=== PATIENT | female | born 1960 | race African-American/Black ===

== ENCOUNTER 2019-08-16 19:51 | Inpatient (IN) | payer OTHER ==
[2019-08-16 21:32] VITALS: BMI 26.4
--- NOTE | 2019-08-16 22:35 | HP ---
CIWA Score Nausea/Vomitin-No Nausea/No Vomiting Muscle Tremors: 4-Moderate,w/Arms Extend Anxiety: 3 Agitation: 4-Moderately Restless Paroxysmal Sweats: 3 (Increased facial moisture) Orientation: 0-Oriented Tacttile Disturbances: 0-None Auditory Disturbances: 0-None Visual Disturbances: 0-None Headache: 0-None Present CIWA-Ar Total Score: 14 - Admission Criteria OASAS Guidelines: Admission for Medically Managed Detox: Requires at least one of the followin. CIWA greater than 12 2. Seizures within the past 24 hours 3. Delirium tremens within the past 24 hours 4. Hallucinations within the past 24 hours 5. Acute intervention needed for co occurring medical disorder 6. Acute intervention needed for co occurring psychiatric disorder 7. Severe withdrawal that cannot be handled at a lower level of care (continued vomiting, continued diarrhea, abnormal vital signs) requiring intravenous medication and/or fluids 8. Patient presents the following: CIWA greater than 12 Admission Criteria Met: Admission criteria met Admission ROS S - HPI Chief Complaint: I need help. I'm drinking too much. Allergies/Adverse Reactions: Allergies Allergy/AdvReac Type Severity Reaction Status Date / Time No Known Allergies Allergy Verified 08/16/19 21:19 History of Present Illness: 59 yo presents w/ alcohol withdrawal seeking detox. Longest sobriety 6 years. Utox: +THC/MILLICENT/BZO ANTHONY: 0.0 Alcohol use began at age 13. Currently drinks 1 liter/day. x 2-3 months. Crack/cocaine use began at age 19. Currently using 1 gm/day since started at age 19. Marijuana use began at age 19. States rarely smokes. Nicotine use began at age 11. Currently smokes 6 cig/day. Denies seizures, blackouts, overdoses. PMHx: HTN, DM; COPD; Prescribed Plavix - non- compliant. Does not know why on Plavix. (Denies stents, strokes, CVA) MHHx: Depression. Not on MH meds. Does not see a MH provider. Denies thoughts of harming self or others. SHx: Domiciled. Unemployed ([employer]). Denies legal issues Patient Name: Nancy Ely Date: 1960 Address: [address] [place] [address] Sex: Female Rx Written Rx Dispensed Drug Quantity Days Supply Prescriber Name 10/22/2018 10/28/2018 endocet 10-325 mg tablet 28 14 Jarad Bustillo MD 10/08/2018 10/14/2018 endocet 10-325 mg tablet 42 14 Denis Gates 09/10/2018 09/15/2018 endocet 10-325 mg tablet 70 30 Jarad Bustillo MD Search Terms: Nancy Ely, 1960 Search Date: 08/16/2019 10:26:59 PM States Searched: [place], [place], [place], [place], [place], [place], [place], [place] The Drug Utilization Report below displays the controlled substance prescriptions, if any, that were dispensed in the indicated state(s). The information displayed on this report is compiled from requests submitted to other states' PMPs, and accurately reflects the information as returned by them. Blank espino indicate data not provided by other state. This report was requested by: Tiffanie Pascal | Reference #: [id number] Exam Limitations: No Limitations - Ebola screening Have you traveled outside of the country in the last 21 days: No (N) Have you had contact with anyone from an Ebola affected area: No Have you been sick,other than usual withdrawal symptoms: No Do you have a fever: No - Review of Systems Constitutional: Diaphoresis EENT: reports: Blurred Vision, Dental Problems (No teeth. Chews and swallows ok. ) Respiratory: reports: Cough (x 2 days white phlegm.) Cardiac: reports: No Symptoms Reported GI: reports: Diarrhea (watery, brownish stool x 2 times today) : reports: No Symptoms Reported Musculoskeletal: reports: Back Pain (Chronic sharp back pain."05/03". Scolioisis. Stading too long increases pain. Improves w/ resting.) Integumentary: reports: No Symptoms Reported Neuro: reports: Numbness (Both feet), Tremors Endocrine: reports: Increased Urine Hematology: reports: Other (Prescribed Plavix - non- compliant.) Psychiatric: reports: Orientated x3, Agitated, Anxious, Depressed (Denies thoughts of harming self or others. x), other Patient History - PPD History Previous Implant?: Yes Documented Results: Negative w/o proof Implanted On Prior [facility] Admission?: No PPD to be Administered?: Yes - Reproductive History Patient : No - Smoking Cessation Smoking history: Current every day smoker Have you smoked in the past 12 months: Yes Aproximately how many cigarettes per day: 10 Hx Chewing Tobacco Use: No Initiated information on smoking cessation: Yes 'Breaking Loose' booklet given: 08/16/19 - Substance & Tx. History Hx Alcohol Use: Yes Hx Substance Use: Yes Substance Use Type: Alcohol, Cocaine Hx Substance Use Treatment: Yes (detox, rehab) - Substances abused Alcohol Substance route: Oral Frequency: Daily Amount used: 1 liter of vodka Age of first use: 13 Date of last use: 08/16/19 Crack Substance route: Smoking Frequency: Daily Amount used: 1gram Age of first use: 19 Date of last use: 08/16/19 Admission Physical Exam BHS - Vital Signs Vital Signs: Vital Signs - 24 hr 08/16/19 21:28 Temperature 97.5 F L Pulse Rate 95 H Respiratory 16 Rate Blood Pressure 135/95 - Physical General Appearance: Yes: Nourished, Mild Distress, Tremorous, Sweating ( Increased facial moisture) HEENTM: Yes: EOMI, Hearing grossly Normal, Normocephalic, Normal Voice, CORINNE, Pharynx Normal Respiratory: Yes: Lungs Clear (Pulse ox = 98%), Normal Breath Sounds, No Respiratory Distress Neck: Yes: No masses,lesions,Nodules, Supple Breast: Yes: Breast Exam Deferred Cardiology: Yes: Regular Rhythm, Regular Rate, S1, S2 Abdominal: Yes: Non Tender, Soft, Increased Bowel Sounds, Protuberent ( Increased abdominal adiposisty) Genitourinary: Yes: Within Normal Limits Back: Yes: Normal Inspection Musculoskeletal: Yes: full range of Motion, Gait Steady Extremities: Yes: Normal Capillary Refill, Tremors (gross tremors w/ hands extended) Neurological: Yes: injection molding machine setter II-XII NML intact, Fully Oriented, Alert, Motor Strength 5/5, Normal Response (Irrtable and short tempered w/responses.) Integumentary: Yes: Normal Color, Warm, Diaphoresis (Increased facial moisture) Lymphatic: Yes: Within Normal Limits - Diagnostic (1) Alcohol dependence with uncomplicated withdrawal Current Visit: Yes Status: Acute (2) Cocaine dependence, uncomplicated Current Visit: Yes Status: Chronic (3) Nicotine dependence, uncomplicated Current Visit: Yes Status: Chronic Qualifiers: Nicotine product type: cigarettes Qualified Code(s): F17.210 - Nicotine dependence, cigarettes, uncomplicated (4) Marijuana smoker, episodic Current Visit: Yes Status: Chronic (5) Diabetes mellitus Current Visit: Yes Status: Chronic Qualifiers: Diabetes mellitus type: type 2 Diabetes mellitus assisted insulin use: without assisted use Diabetes mellitus complication status: without complication Qualified Code(s): E11.9 - Type 2 diabetes mellitus without complications (6) Essential (primary) hypertension Current Visit: Yes Status: Chronic (7) History of COPD Current Visit: No Status: Chronic Cleared for Admission S - Detox or Rehab [facility] Level of Care: Medically Managed Detox Regimen/Protocol: Librium Claeared for Rehab Admission: No Breathalyzer - Breathalyzer Breathalyzer: 0 Urine Drug Screen - Test Device Lot number: [id number] Expiration date: 04/23/21 - Control Is test valid?: Yes - Results Drug screen NEGATIVE: No Urine drug screen results: THC-Marijuana, MILLICENT-Cocaine, BZO-Benzodiazepines Inpatient Rehab Admission - Rehab Decision to Admit Inpatient rehab admission?: No
[2019-08-16] MEDS ORDERED: BISMUTH SUBSALICYLATE 524 MG/30 ML UD PO PRN (23:03)
[2019-08-16] MEDS ORDERED: NICOTINE POLACRILEX 2 MG GUM BUC PRN (23:03)
[2019-08-16] MEDS ORDERED: MELATONIN 5 MG TABLETS PO PRN (23:03)
[2019-08-16] MEDS ORDERED: MAGNESIUM CITRATE 300 ML BOTTLE PO PRN (23:03)
[2019-08-16] MEDS ORDERED: MAG HYDROX/AL HYDROX/SIMETH 30 ML UNIT-DOSE CUP PO PRN (23:03)
[2019-08-16] MEDS ORDERED: MAGNESIUM HYDROX 2400MG/30ML ORAL SUSPENSION 30 ML CUP PO PRN (23:03)
[2019-08-16] MEDS ORDERED: METHOCARBAMOL 500 MG TABLET PO PRN (23:03)
[2019-08-16] MEDS ORDERED: ACETAMINOPHEN 325 MG TABLET (FP) PO PRN ×2 (23:03)
[2019-08-16] MEDS ORDERED: MENTHOL/PHENOL 1 EACH UD MM PRN (23:03)
[2019-08-16] MEDS ORDERED: chlordiazePOXIDE HCL 10 MG CAPSULE PO PRN (23:03)
[2019-08-16] MEDS ORDERED: ALBUTEROL SO4 0.083% IH SOL 2.5 MG/3 ML VIAL.NEB. NEB SCH (23:07)
[2019-08-16] MEDS ORDERED: ALBUTEROL SO4 0.083% IH SOL 2.5 MG/3 ML VIAL.NEB. NEB PRN (23:24)
[2019-08-16] MEDS: chlordiazePOXIDE HCL 25 MG CAPSULE PO SCH (23:57)
[2019-08-17] MEDS ORDERED: METFORMIN HCL 500 MG PO SCH (07:00)
[2019-08-17] MEDS: chlordiazePOXIDE HCL 25 MG CAPSULE PO SCH ×3 (07:51→23:24)
[2019-08-17] MEDS ORDERED: LISINOPRIL HCTZ PO SCH (10:00)
[2019-08-17 10:22] LABS: ALBUMIN 3.1 g/dl (3.4-5.0); BILIRUBIN,TOTAL 0.4 mg/dL (0.2-1); BLOOD UREA NITROGEN 14.5 mg/dL (7-18); CALCIUM 8.7 mg/dL (8.5-10.1); CREATININE 1.1 mg/dL (0.55-1.3); TOT PROT 6.8 g/dl (6.4-8.2)
--- NOTE | 2019-08-17 10:36 | PN ---
S CIWA - CIWA Score Nausea/Vomitin-Mild Nausea/No Vomiting Muscle Tremors: 3 Anxiety: 3 Agitation: 3 Paroxysmal Sweats: 2 Orientation: 0-Oriented Tacttile Disturbances: 0-None Auditory Disturbances: 0-None Visual Disturbances: 0-None Headache: 0-None Present CIWA-Ar Total Score: 12 S Progress Note (SOAP) Subjective: nausea agitation sweats shakes body aches irritable Objective: 08/17/19 10:35 Vital Signs Temperature 98.1 F 08/17/19 09:11 Pulse Rate 92 H 08/17/19 09:11 Respiratory Rate 18 08/17/19 09:11 Blood Pressure 143/87 08/17/19 09:11 O2 Sat by Pulse Oximetry (%) Laboratory Tests 08/17/19 08:15 Sodium 142 Potassium 4.0 Chloride 108 H Carbon Dioxide 28 Anion Gap 6 L BUN 14.5 Creatinine 1.1 Est GFR (CKD-EPI)AfAm 64.09 Est GFR (CKD-EPI)NonAf 55.30 Random Glucose 90 Calcium 8.7 Total Bilirubin 0.4 AST 17 ALT 20 Alkaline Phosphatase 133 H Total Protein 6.8 Albumin 3.1 L rest of labs pending aaox3 lying in bed no acute distress Assessment: 08/17/19 10:36 withdrawals Plan: continue detox increase fluids pending labs
[2019-08-17 10:39] LABS: INR 0.83 (0.83-1.09); PROTHROMBIN TIME (PATIENT) 9.8 SEC (9.7-13.0)
[2019-08-17] MEDS: HYDROCHLOROTHIAZIDE 12.5 MG CAPSULE (FP) PO SCH (10:40)
[2019-08-17] MEDS: LISINOPRIL 20 MG TABLET (FP) PO SCH (10:40)
[2019-08-17] MEDS: PRENATAL VITAMINS W/ FOLIC ACID TABLET (FP) PO SCH (10:41)
[2019-08-17] MEDS: NICOTINE 14 MG/24 HOURS TOPICAL PATCH TD SCH (10:41)
[2019-08-17 10:48] LABS: HEMATOCRIT 44.5 % (32.4-45.2); HEMOGLOBIN 14.5 GM/dL (10.7-15.3); MCH 28.7 pg (25.7-33.7); MCHC 32.6 g/dl (32.0-36.0); MEAN CELL VOLUME 87.9 fl (80-96); MEAN PLT VOLUME 8.8 fl (7.5-11.1); PLATELET COUNT 242 K/MM3 (134-434); RBC 5.06 M/mm3 (3.60-5.2); RDW 13.6 % (11.6-15.6)
--- NOTE | 2019-08-17 14:29 | EKG ---
Test Reason : Blood Pressure : / mmHG Vent. Rate : 088 BPM Atrial Rate : 088 BPM P-R Int : 122 ms QRS Dur : 080 ms QT Int : 374 ms P-R-T Axes : 068 011 029 degrees QTc Int : 452 ms NORMAL SINUS RHYTHM WITH SINUS ARRHYTHMIA SEPTAL INFARCT , AGE UNDETERMINED ABNORMAL ECG NO PREVIOUS ECGS AVAILABLE Confirmed by MD Dakota, Moiz ([id number]) on 08/17/2019 2:28:59 PM Referred By: Iván Solis Confirmed By:Moiz Duncan MD
[2019-08-17] MEDS: metFORMIN HCL 500 MG TABLET (FP) PO SCH (17:52)
[2019-08-17] MEDS: ATORVASTATIN CA 40 MG TABLET (FP) PO SCH (23:23)
[2019-08-17] MEDS: THIAMINE HCL 100 MG TABLET (FP) PO SCH (23:23)
[2019-08-18] MEDS: chlordiazePOXIDE 5 MG CAPSULE PO SCH ×3 (07:46→22:33)
[2019-08-18] MEDS: metFORMIN HCL 500 MG TABLET (FP) PO SCH ×2 (07:47→17:39)
[2019-08-18] MEDS: PRENATAL VITAMINS W/ FOLIC ACID TABLET (FP) PO SCH (11:16)
[2019-08-18] MEDS: NICOTINE 14 MG/24 HOURS TOPICAL PATCH TD SCH (11:16)
[2019-08-18] MEDS: HYDROCHLOROTHIAZIDE 12.5 MG CAPSULE (FP) PO SCH (11:16)
[2019-08-18] MEDS: LISINOPRIL 20 MG TABLET (FP) PO SCH (11:16)
--- NOTE | 2019-08-18 13:43 | PN ---
[facility] CIWA - CIWA Score Nausea/Vomitin-No Nausea/No Vomiting Muscle Tremors: 3 Anxiety: 2 Agitation: 2 Paroxysmal Sweats: 2 Orientation: 0-Oriented Tacttile Disturbances: 0-None Auditory Disturbances: 0-None Visual Disturbances: 0-None Headache: 0-None Present CIWA-Ar Total Score: 9 S Progress Note (SOAP) Subjective: irritable agitation sweats interrupted sleep Objective: 08/18/19 13:42 Vital Signs Temperature 97.4 F L 08/18/19 13:00 Pulse Rate 84 08/18/19 13:00 Respiratory Rate 18 08/18/19 13:00 Blood Pressure 117/78 08/18/19 13:00 O2 Sat by Pulse Oximetry (%) Laboratory Tests 08/17/19 08/17/19 08/17/19 08:15 08:15 08:15 WBC 5.0 RBC 5.06 Hgb 14.5 Hct 44.5 MCV 87.9 MCH 28.7 MCHC 32.6 RDW 13.6 Plt Count 242 MPV 8.8 PT with INR 9.80 INR 0.83 Sodium 142 Potassium 4.0 Chloride 108 H Carbon Dioxide 28 Anion Gap 6 L BUN 14.5 Creatinine 1.1 Est GFR (CKD-EPI)AfAm 64.09 Est GFR (CKD-EPI)NonAf 55.30 POC Glucometer Random Glucose 90 Calcium 8.7 Total Bilirubin 0.4 AST 17 ALT 20 Alkaline Phosphatase 133 H Total Protein 6.8 Albumin 3.1 L RPR Titer 08/17/19 08/17/19 08:15 16:31 WBC RBC Hgb Hct MCV MCH MCHC RDW Plt Count MPV PT with INR INR Sodium Potassium Chloride Carbon Dioxide Anion Gap BUN Creatinine Est GFR (CKD-EPI)AfAm Est GFR (CKD-EPI)NonAf POC Glucometer 121 Random Glucose Calcium Total Bilirubin AST ALT Alkaline Phosphatase Total Protein Albumin RPR Titer Nonreactive labs noted aaox3 ambulating no acute distress Assessment: 08/18/19 13:42 withdrawals sx Plan: continue detox increase fluids
[2019-08-18] MEDS: ATORVASTATIN CA 40 MG TABLET (FP) PO SCH (22:33)
[2019-08-18] MEDS: THIAMINE HCL 100 MG TABLET (FP) PO SCH (22:33)
[2019-08-19] MEDS ORDERED: chlordiazePOXIDE HCL 10 MG CAPSULE PO PRN
[2019-08-19] MEDS: chlordiazePOXIDE HCL 10 MG CAPSULE PO SCH ×3 (07:53→22:39)
[2019-08-19] MEDS: metFORMIN HCL 500 MG TABLET (FP) PO SCH ×2 (07:57→16:52)
[2019-08-19] MEDS: LISINOPRIL 20 MG TABLET (FP) PO SCH (10:09)
[2019-08-19] MEDS: PRENATAL VITAMINS W/ FOLIC ACID TABLET (FP) PO SCH (10:09)
[2019-08-19] MEDS: HYDROCHLOROTHIAZIDE 12.5 MG CAPSULE (FP) PO SCH (10:09)
[2019-08-19] MEDS: NICOTINE 14 MG/24 HOURS TOPICAL PATCH TD SCH (10:10)
--- NOTE | 2019-08-19 12:13 | PN ---
S CIWA - CIWA Score Nausea/Vomitin-No Nausea/No Vomiting Muscle Tremors: 2 Anxiety: 1-Mildly Anxious Agitation: 1-Slight > Activity Paroxysmal Sweats: No Perspiration Orientation: 0-Oriented Tacttile Disturbances: 0-None Auditory Disturbances: 0-None Visual Disturbances: 0-None Headache: 0-None Present CIWA-Ar Total Score: 4 BHS Progress Note (SOAP) Subjective: tired anxiety Objective: 08/19/19 12:12 Vital Signs Temperature 97.1 F L 08/19/19 09:46 Pulse Rate 86 08/19/19 09:46 Respiratory Rate 18 08/19/19 09:46 Blood Pressure 132/74 08/19/19 09:46 O2 Sat by Pulse Oximetry (%) aaox3 ambulating no acute distress Assessment: 08/19/19 12:13 mild withdrawals Plan: continue detox increase fluids d/c in am
[2019-08-19] MEDS: ATORVASTATIN CA 40 MG TABLET (FP) PO SCH (22:39)
[2019-08-19] MEDS: THIAMINE HCL 100 MG TABLET (FP) PO SCH (22:39)
[2019-08-20] MEDS ORDERED: chlordiazePOXIDE HCL 10 MG CAPSULE PO ONE (05:00)
[2019-08-20 07:02] VITALS: PULSE 81
[2019-08-20] MEDS: metFORMIN HCL 500 MG TABLET (FP) PO SCH (07:14)
--- NOTE | 2019-08-20 08:43 | DS ---
[facility] Detox Discharge Summary Admission Date: 08/16/19 Discharge Date: 08/20/19 - History Present History: Alcohol Dependence, Cocaine Dependence - Physical Exam Results Vital Signs: Vital Signs Temperature 97.5 F L 08/20/19 06:00 Pulse Rate 81 08/20/19 06:00 Respiratory Rate 18 08/20/19 06:00 Blood Pressure 126/79 08/20/19 06:00 O2 Sat by Pulse Oximetry (%) Pertinent Admission Physical Exam Findings: pt arrived in withdrawals Laboratory Tests 08/17/19 08/17/19 08/17/19 08:15 08:15 08:15 WBC 5.0 RBC 5.06 Hgb 14.5 Hct 44.5 MCV 87.9 MCH 28.7 MCHC 32.6 RDW 13.6 Plt Count 242 MPV 8.8 PT with INR 9.80 INR 0.83 Sodium 142 Potassium 4.0 Chloride 108 H Carbon Dioxide 28 Anion Gap 6 L BUN 14.5 Creatinine 1.1 Est GFR (CKD-EPI)AfAm 64.09 Est GFR (CKD-EPI)NonAf 55.30 POC Glucometer Random Glucose 90 Calcium 8.7 Total Bilirubin 0.4 AST 17 ALT 20 Alkaline Phosphatase 133 H Total Protein 6.8 Albumin 3.1 L RPR Titer 08/17/19 08/17/19 08/19/19 08:15 16:31 06:54 WBC RBC Hgb Hct MCV MCH MCHC RDW Plt Count MPV PT with INR INR Sodium Potassium Chloride Carbon Dioxide Anion Gap BUN Creatinine Est GFR (CKD-EPI)AfAm Est GFR (CKD-EPI)NonAf POC Glucometer 121 129 Random Glucose Calcium Total Bilirubin AST ALT Alkaline Phosphatase Total Protein Albumin RPR Titer Nonreactive 08/19/19 08/20/19 16:49 07:04 WBC RBC Hgb Hct MCV MCH MCHC RDW Plt Count MPV PT with INR INR Sodium Potassium Chloride Carbon Dioxide Anion Gap BUN Creatinine Est GFR (CKD-EPI)AfAm Est GFR (CKD-EPI)NonAf POC Glucometer 147 166 Random Glucose Calcium Total Bilirubin AST ALT Alkaline Phosphatase Total Protein Albumin RPR Titer today pt is aaox3 ambulating no acute distress no s/s of withdrawals - Treatment Hospital Course: Detox Protocol Followed, Detoxed Safely, Responded well, Discharged Condition Good, Rehab Referral Accepted Patient has Accepted a Rehab Referral to: pt referred to [facility] inpatient rehab - Medication Discharge Medications: Ambulatory Orders Albuterol Sulfate Inhaler - [Ventolin HFA Inhaler -] 2 puff IH Q6H PRN 08/16/19 Atorvastatin Ca [Lipitor] 40 mg PO HS 08/16/19 Clopidogrel Bisulfate [Clopidogrel] 75 mg PO DAILY 08/16/19 Lisinopril-Hctz 20-12.5 mg Tab 10 mg PO DAILY 08/16/19 Metformin HCl ER 500 mg PO AM 08/16/19 - Diagnosis (1) Alcohol dependence with uncomplicated withdrawal Current Visit: Yes Status: Chronic (2) Cocaine dependence, uncomplicated Current Visit: Yes Status: Chronic (3) Diabetes mellitus Current Visit: Yes Status: Chronic Qualifiers: Diabetes mellitus type: type 2 Diabetes mellitus hand twister insulin use: without mcfp use Diabetes mellitus complication status: without complication Qualified Code(s): E11.9 - Type 2 diabetes mellitus without complications (4) Essential (primary) hypertension Current Visit: Yes Status: Chronic (5) Marijuana smoker, episodic Current Visit: Yes Status: Chronic (6) Nicotine dependence, uncomplicated Current Visit: Yes Status: Chronic Qualifiers: Nicotine product type: cigarettes Qualified Code(s): F17.210 - Nicotine dependence, cigarettes, uncomplicated (7) History of COPD Current Visit: No Status: Chronic - AMA Did Patient Leave Against Medical Advice: No
[2019-08-20 09:34] VITALS: BP 152/90; TEMP 98.8
[2019-08-20] MEDS: LISINOPRIL 20 MG TABLET (FP) PO SCH (10:41)
[2019-08-20] MEDS: PRENATAL VITAMINS W/ FOLIC ACID TABLET (FP) PO SCH (10:41)
[2019-08-20] MEDS: HYDROCHLOROTHIAZIDE 12.5 MG CAPSULE (FP) PO SCH (10:41)
[2019-08-20] MEDS: NICOTINE 14 MG/24 HOURS TOPICAL PATCH TD SCH (10:41)
== END 2019-08-20 13:08 | disposition other institution (70) | DRG 774 ==
LOC: YASAS 19:51 → Y6N 23:02
PROVIDERS: ADMIT Surgery; ATTEND Surgery
PROC: HZ2ZZZZ Detoxification Services for Substance Abuse Treatment (ICD-10-PCS; principal; 2019-08-16)
DX: F10.230 Alcohol dependence with withdrawal, uncomplicated (principal); F14.20 Cocaine dependence, uncomplicated; F12.20 Cannabis dependence, uncomplicated; F17.210 Nicotine dependence, cigarettes, uncomplicated; I10 Essential (primary) hypertension; E11.9 Type 2 diabetes mellitus without complications; Z91.14 Patient's other noncompliance with medication regimen
CPT/HCPCS: 36415; 80053; 82962; 85027; 85610; 86593; 93005; 93010

== ENCOUNTER 2019-08-20 13:21 | Inpatient (IN) | payer OTHER ==
--- NOTE | 2019-08-20 11:45 | HP ---
[facility] Rehab Assess/Revision - Admission History Admitted to Rehab [facility] - Findings Detox History & Physical reviewed: Yes Concur with findings: Yes Inpatient Rehab Admission - Rehab Decision to Admit Inpatient rehab admission?: Yes - Initial Determination Are CD services needed?: Yes Free of communicable disease: Yes Not in need of hospitalization: Yes - Rehab Admission Criteria Previous failed treatment: Yes Poor recovery environment: Yes Comorbidities: Yes Lacks judgement: Yes Patient is meeting Inpatient Rehab admission criteria:: Yes
[~2019-08-20 13:21] MED LIST: ACETAMINOPHEN 325 MG TABLET (FP) PO PRN; IBUPROFEN 400 MG TABLET (FP) PO PRN; LOPERAMIDE HCL 2 MG CAPSULE PO PRN; MAG HYDROX/AL HYDROX/SIMETH 30 ML UNIT-DOSE CUP PO PRN; MAGNESIUM CITRATE 300 ML BOTTLE PO PRN; MAGNESIUM HYDROX 2400MG/30ML ORAL SUSPENSION 30 ML CUP PO PRN; MENTHOL/PHENOL 1 EACH UD MM PRN; NICOTINE POLACRILEX 4 MG GUM BUC PRN; P-EPHED 60MG/TRIPROLIDI 2.5MG TABLET PO PRN; guaiFENesin 200 MG/10 ML 10 ML UNIT-DOSE CUPS PO PRN; hydrOXYzine PAMOATE 50 MG CAPSULE (FP) PO PRN
[2019-08-20] MEDS: THIAMINE HCL 100 MG TABLET (FP) PO SCH (21:34)
[2019-08-20] MEDS ORDERED: MELATONIN 5 MG TABLETS PO PRN (22:00)
[2019-08-21] MEDS: PRENATAL VITAMINS W/ FOLIC ACID TABLET (FP) PO SCH (11:36)
[2019-08-21] MEDS: NICOTINE 21 MG/24 HOURS TOPICAL PATCH TD SCH (12:37)
[2019-08-21] MEDS: THIAMINE HCL 100 MG TABLET (FP) PO SCH (21:58)
[2019-08-22] MEDS: PRENATAL VITAMINS W/ FOLIC ACID TABLET (FP) PO SCH (09:47)
[2019-08-22] MEDS: NICOTINE 21 MG/24 HOURS TOPICAL PATCH TD SCH (09:48)
[2019-08-22] MEDS: THIAMINE HCL 100 MG TABLET (FP) PO SCH (21:52)
[2019-08-23] MEDS ORDERED: ALBUTEROL SO4 8 GM HFA INHALER IH PRN (09:38)
[2019-08-23] MEDS ORDERED: LISINOPRIL HCTZ PO SCH (10:00)
[2019-08-23] MEDS: HYDROCHLOROTHIAZIDE 12.5 MG CAPSULE (FP) PO SCH (10:41)
[2019-08-23] MEDS: PRENATAL VITAMINS W/ FOLIC ACID TABLET (FP) PO SCH (10:42)
[2019-08-23] MEDS: CLOPIDOGREL BISULFATE 75 MG TABLET (FP) PO SCH (10:42)
[2019-08-23] MEDS: NICOTINE 21 MG/24 HOURS TOPICAL PATCH TD SCH (10:42)
[2019-08-23] MEDS: LISINOPRIL 10 MG TABLET (FP) PO SCH (10:42)
[2019-08-23] MEDS: ATORVASTATIN CA 40 MG TABLET (FP) PO SCH (21:28)
[2019-08-23] MEDS: THIAMINE HCL 100 MG TABLET (FP) PO SCH (21:29)
[2019-08-24] MEDS: CLOPIDOGREL BISULFATE 75 MG TABLET (FP) PO SCH (10:10)
[2019-08-24] MEDS: PRENATAL VITAMINS W/ FOLIC ACID TABLET (FP) PO SCH (10:10)
[2019-08-24] MEDS: LISINOPRIL 10 MG TABLET (FP) PO SCH (10:10)
[2019-08-24] MEDS: HYDROCHLOROTHIAZIDE 12.5 MG CAPSULE (FP) PO SCH (10:11)
[2019-08-24] MEDS: NICOTINE 21 MG/24 HOURS TOPICAL PATCH TD SCH (10:12)
--- NOTE | 2019-08-24 11:42 | PN ---
[facility] Progress Note Note: Nurses in rounds report this morning that Ms Ely refused Vital signs and BGM this morning. This underwriter mortgage loan spoke to patient who stated that she wanted to sleep and did not want to be disturbed. Spoke to patient the need for VS and BGM and encouraged pt to work with the staff for her safe treatment while in rehab. Pt verbalized understanding. pt mad herself available for both later on after breakfast. vital Signs - 24 hr 08/24/19 08/24/19 08/24/19 00:30 03:30 09:00 Pulse Rate 87 Respiratory 18 18 Rate Blood Pressure 129/84 BGM= 118 mg/dl postprandial A/P Hx DM Continue and monitor BGM Metformin 500 mg po daily as directed per protocol
[2019-08-24] MEDS: ATORVASTATIN CA 40 MG TABLET (FP) PO SCH (21:46)
[2019-08-24] MEDS: THIAMINE HCL 100 MG TABLET (FP) PO SCH (21:47)
[2019-08-25] MEDS: CLOPIDOGREL BISULFATE 75 MG TABLET (FP) PO SCH (10:02)
[2019-08-25] MEDS: LISINOPRIL 10 MG TABLET (FP) PO SCH (10:02)
[2019-08-25] MEDS: HYDROCHLOROTHIAZIDE 12.5 MG CAPSULE (FP) PO SCH (10:02)
[2019-08-25] MEDS: PRENATAL VITAMINS W/ FOLIC ACID TABLET (FP) PO SCH (10:02)
[2019-08-25] MEDS: NICOTINE 21 MG/24 HOURS TOPICAL PATCH TD SCH (10:03)
--- NOTE | 2019-08-25 18:34 | PN ---
S Progress Note Note: Pt reports she is on Triumeq 1 tab po daily and wants to continue her meds. The nurse, Ms Loretta Spoke to pt's medical provider at [facility] who requests pt should continue medication. The list of pt's current meds was faxed to the unit from her primary care. Faxed Copy is placed in pt's chart. Vital Signs - 24 hr 08/25/19 08/25/19 08/25/19 03:30 07:05 09:15 Temperature 97.6 F Pulse Rate 87 94 H Respiratory 18 18 Rate Blood Pressure 128/79 109/76 Alert o x 3 oob ambulating with steady gait pt participating in unit activities. A/P Hx HIV+ Restart Triumeq 1 tab po daily Pt aware she will follow up with her primary care/pharmacy after rehab treatment for medical management and refills.
[2019-08-25] MEDS: ABACAVIR/DOLUTEGRAVIR/LAMIVUDI (TRIUMEQ) TABLET -NF PO SCH (18:50)
[2019-08-25] MEDS: THIAMINE HCL 100 MG TABLET (FP) PO SCH (21:53)
[2019-08-25] MEDS: ATORVASTATIN CA 40 MG TABLET (FP) PO SCH (21:54)
[2019-08-26] MEDS ORDERED: PT OWN MED DRAWER 7, Y5N ONE (04:03)
[2019-08-26] MEDS: ABACAVIR/DOLUTEGRAVIR/LAMIVUDI (TRIUMEQ) TABLET -NF PO SCH (07:46)
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
[2019-08-26] MEDS: CLOPIDOGREL BISULFATE 75 MG TABLET (FP) PO SCH (10:10)
[2019-08-26] MEDS: LISINOPRIL 10 MG TABLET (FP) PO SCH (10:10)
[2019-08-26] MEDS: PRENATAL VITAMINS W/ FOLIC ACID TABLET (FP) PO SCH (10:10)
[2019-08-26] MEDS: HYDROCHLOROTHIAZIDE 12.5 MG CAPSULE (FP) PO SCH (10:10)
[2019-08-26] MEDS: NICOTINE 21 MG/24 HOURS TOPICAL PATCH TD SCH (10:10)
--- NOTE | 2019-08-26 14:41 | PN ---
S Progress Note Note: Patient is scheduled for discharge tomorrow. Script for 30 days supply of Seroquel 50 mg/hs will be electronically transmitted to [facility] at [address] [place] [address]
--- NOTE | 2019-08-26 15:09 | DS ---
[facility] Rehab Discharge Summary - [facility] Rehab Discharge Summary Admission Date: 08/20/19 Discharge Date: 08/27/19 - History Present History: Alcohol dependence, Cocaine dependence Additional Comments: Pt is a 59 y/o female admitted to rehab for MYNOR and scheduled for discharge on 08/27/19 after completion of treatment. Pertinent Past History: Asthma HTN HLD DM HIV+ Mood disorder - Discharge Physical Exam Vital Signs: Vital Signs Temperature 97.6 F 08/25/19 07:05 Pulse Rate 93 H 08/26/19 09:36 Respiratory Rate 18 08/26/19 07:21 Blood Pressure 122/85 08/26/19 09:36 O2 Sat by Pulse Oximetry (%) Alert o x 3 nad oob ambulating with steady gait Cardiac:s1 s2, rrr Lungs:cta,yaquelin Abdomen:soft,+bs,nt,nd Extremities/Skin:No edema,dry,full ROM,no skin breaks. Pertinent Admission Physical Exam Findings: Laboratory Tests 08/23/19 08/23/19 08/24/19 07:44 16:42 10:54 POC Glucometer 110 130 118 08/25/19 08/25/19 08/26/19 07:39 16:49 07:45 POC Glucometer 93 91 89 - Treatment Discharge Condition: Discharge condition good Hospital Course: Rehabilitated safely and responded well Aftercare referral accepted. - Medication Discharge Medications: Ambulatory Orders Albuterol Sulfate Inhaler - [Ventolin HFA Inhaler -] 2 puff IH Q6H PRN 08/16/19 Lisinopril-Hctz 20-12.5 mg Tab 10 mg PO DAILY 08/16/19 Metformin HCl ER 500 mg PO AM 08/16/19 Abacavir/Dolutegravir/Lamivudi [Triumeq 600-50-300 mg Tablet] 1 tab PO DAILY # 30 tablet 08/26/19 Atorvastatin Ca [Lipitor] 40 mg PO HS #30 tablet 08/26/19 Clopidogrel Bisulfate [Clopidogrel] 75 mg PO DAILY #30 tablet 08/26/19 Lisinopril/Hydrochlorothiazide [Lisinopril-Hctz 10-12.5 mg Tab] 1 each PO DAILY #30 tablet 08/26/19 Metformin HCl [Metformin HCl ER] 500 mg PO DAILY #30 tab.er.24h 08/26/19 Quetiapine Fumarate [Seroquel -] 50 mg PO HS #30 tablet 08/26/19 Quetiapine Fumarate [Seroquel -] 50 mg PO HS #30 tablet 08/27/19 - Medication-Assisted Treatment (MAT) Medication-Assisted Treatment (MAT): No - Discharge Instructions Diet, activity, other medical instructions: Diet:Low salt and no concentrated sweets Activity: oob ad chace Other medical instructions:Follow up with primary care Dr. Lilo Harvey at [facility]. Follow up with [facility] aftercare at [facility]. - Diagnosis (1) Alcohol dependence Status: Chronic Qualifiers: Substance use status: uncomplicated Qualified Code(s): F10.20 - Alcohol dependence, uncomplicated (2) Cocaine dependence, uncomplicated Status: Chronic (3) Diabetes mellitus Status: Chronic Qualifiers: Diabetes mellitus type: type 2 Diabetes mellitus retirement insulin use: without retirement use Diabetes mellitus complication status: without complication Qualified Code(s): E11.9 - Type 2 diabetes mellitus without complications (4) Essential (primary) hypertension Status: Chronic (5) History of COPD Status: Chronic (6) Nicotine dependence, uncomplicated Status: Chronic Qualifiers: Nicotine product type: cigarettes Qualified Code(s): F17.210 - Nicotine dependence, cigarettes, uncomplicated - Follow-up Referral Minutes to complete discharge: 25 - AMA Did Patient Leave Against Medical Advice: No
[2019-08-26] MEDS ORDERED: MINERAL OIL/PETROLAT/WATER TOPICAL CREAM 113 GM JAR TP SCH (15:30)
[2019-08-26] MEDS: ATORVASTATIN CA 40 MG TABLET (FP) PO SCH (21:30)
[2019-08-26] MEDS: THIAMINE HCL 100 MG TABLET (FP) PO SCH (21:31)
[2019-08-26] MEDS ORDERED: QUEtiapine FUMARATE 50 MG TABLET PO SCH (22:00)
[2019-08-27] MEDS ORDERED: PT OWN MED DRAWER 7, Y5N ONE (05:44)
[2019-08-27 07:12] VITALS: BP 128/82; PULSE 84; TEMP 97.7
[2019-08-27] MEDS: ABACAVIR/DOLUTEGRAVIR/LAMIVUDI (TRIUMEQ) TABLET -NF PO SCH (07:14)
== END 2019-08-27 08:48 | disposition home or self-care (01) | DRG 772 ==
LOC: YASAS 13:21 → Y3W 13:22 → Y3E 08-22 11:15 → Y3W 08-22 12:30 → Y3E 08-22 12:36
PROVIDERS: ADMIT Neuromusculoskeletal Medicine & OMM; ATTEND Neuromusculoskeletal Medicine & OMM
PROC: HZ42ZZZ Group Counseling for Substance Abuse Treatment, Cognitive-Behavioral (ICD-10-PCS; principal; 2019-08-20)
DX: F10.20 Alcohol dependence, uncomplicated (principal); F14.20 Cocaine dependence, uncomplicated; F17.210 Nicotine dependence, cigarettes, uncomplicated; F39 Unspecified mood [affective] disorder; F19.282 Other psychoactive substance dependence with psychoactive substance-induced sleep disorder; Z21 Asymptomatic human immunodeficiency virus [HIV] infection status; I10 Essential (primary) hypertension; E78.5 Hyperlipidemia, unspecified; E11.9 Type 2 diabetes mellitus without complications; Z79.84 Long term (current) use of oral hypoglycemic drugs; J44.9 Chronic obstructive pulmonary disease, unspecified
CPT/HCPCS: 82962

== ENCOUNTER 2022-03-14 13:07 | Inpatient (IN) | payer OTHER ==
[2022-03-14] MEDS ORDERED: LOPERAMIDE HCL 2 MG CAPSULE PO PRN (14:32)
[2022-03-14] MEDS ORDERED: MAGNESIUM HYDROX 2400MG/30ML ORAL SUSPENSION 30 ML CUP PO PRN (14:32)
[2022-03-14] MEDS ORDERED: ACETAMINOPHEN 325 MG TABLET (FP) PO PRN (14:32)
[2022-03-14] MEDS ORDERED: P-EPHED 60MG/TRIPROLIDI 2.5MG TABLET PO PRN (14:32)
[2022-03-14] MEDS ORDERED: NICOTINE 10 MG CARTRIDGE (INHALER) IH PRN (14:32)
[2022-03-14] MEDS ORDERED: MAGNESIUM CITRATE 300 ML BOTTLE PO PRN (14:32)
[2022-03-14] MEDS ORDERED: guaiFENesin 200 MG/10 ML 10 ML UNIT-DOSE CUPS PO PRN (14:32)
[2022-03-14] MEDS ORDERED: IBUPROFEN 400 MG TABLET (FP) PO PRN (14:32)
[2022-03-14] MEDS ORDERED: MAG HYDROX/AL HYDROX/SIMETH 30 ML UNIT-DOSE CUP PO PRN (14:32)
[2022-03-14] MEDS ORDERED: ALBUTEROL SO4 HFA INHALER IH PRN (14:37)
[2022-03-14] MEDS: hydrOXYzine PAMOATE 25 MG CAPSULE (FP) PO SCH ×2 (17:15→21:21)
[2022-03-14] MEDS: PRENATAL VITAMINS W/ FOLIC ACID TABLET (FP) PO SCH (17:15)
[2022-03-14] MEDS: THIAMINE HCL 100 MG TABLET (FP) PO SCH (21:20)
[2022-03-14] MEDS: ATORVASTATIN CA 40 MG TABLET (FP) PO SCH (21:20)
[2022-03-14] MEDS: MELATONIN 5 MG TABLETS PO SCH (21:21)
[2022-03-14] MEDS: NICOTINE 7 MG/24 HOURS TOPICAL PATCH TD SCH (21:23)
[2022-03-14] MEDS ORDERED: TUBERCULIN PPD 5 TU/0.1ML VIAL ID ONE (22:32)
[2022-03-15] MEDS: hydrOXYzine PAMOATE 25 MG CAPSULE (FP) PO SCH ×5 (06:41→22:22)
[2022-03-15] MEDS ORDERED: PATIENT'S OWN MEDICATION (NON-FORMULARY) (Lisinopril/Hydrochlorothiazide [Lisinopril-Hctz PO SCH (10:00)
[2022-03-15 10:35] LABS: HEMATOCRIT 38.6 % (32.4-45.2); HEMOGLOBIN 12.3 GM/dL (10.7-15.3); MCH 24.5 pg (25.7-33.7); MCHC 31.7 g/dl (32.0-36.0); MEAN CELL VOLUME 77.3 fl (80-96); MEAN PLT VOLUME 8.5 fl (7.5-11.1); PLATELET COUNT 228 10^3/uL (134-434); RBC 4.99 M/mm3 (3.60-5.2); RDW 17.4 % (11.6-15.6); WHITE BLOOD COUNT 3.7 K/mm3 (4.0-10.0)
[2022-03-15 10:41] LABS: CALCIUM 8.5 mg/dL (8.5-10.1); CREATININE 1.2 mg/dL (0.55-1.3)
[2022-03-15 10:42] LABS: ALBUMIN 2.6 g/dl (3.4-5.0); BILIRUBIN,TOTAL 0.4 mg/dL (0.2-1)
[2022-03-15 10:43] LABS: TOT PROT 6.4 g/dl (6.4-8.2)
[2022-03-15] MEDS: LISINOPRIL 10 MG TABLET PO SCH (10:51)
[2022-03-15] MEDS: HYDROCHLOROTHIAZIDE 12.5 MG CAPSULE (FP) PO SCH (10:51)
[2022-03-15] MEDS: PRENATAL VITAMINS W/ FOLIC ACID TABLET (FP) PO SCH (10:53)
[2022-03-15] MEDS: ABACAVIR/DOLUTEGRAVIR/LAMIVUDI (TRIUMEQ) TABLET -NF PO SCH (10:53)
[2022-03-15] MEDS: NICOTINE 7 MG/24 HOURS TOPICAL PATCH TD SCH (10:54)
[2022-03-15 12:31] LABS: SYPHILIS W/ RPR CONF REACTIVE (NONREACTIVE)
[2022-03-15] MEDS: ATORVASTATIN CA 40 MG TABLET (FP) PO SCH (22:21)
[2022-03-15] MEDS: MELATONIN 5 MG TABLETS PO SCH (22:21)
[2022-03-15] MEDS: THIAMINE HCL 100 MG TABLET (FP) PO SCH (22:21)
[2022-03-15] MEDS: QUEtiapine FUMARATE 50 MG TABLET PO SCH (22:21)
[2022-03-16] MEDS: hydrOXYzine PAMOATE 25 MG CAPSULE (FP) PO SCH ×5 (08:14→21:14)
[2022-03-16] MEDS: PRENATAL VITAMINS W/ FOLIC ACID TABLET (FP) PO SCH (10:51)
[2022-03-16] MEDS: HYDROCHLOROTHIAZIDE 12.5 MG CAPSULE (FP) PO SCH (10:51)
[2022-03-16] MEDS: NICOTINE 7 MG/24 HOURS TOPICAL PATCH TD SCH (10:51)
[2022-03-16] MEDS: LISINOPRIL 10 MG TABLET PO SCH (10:51)
[2022-03-16] MEDS: ABACAVIR/DOLUTEGRAVIR/LAMIVUDI (TRIUMEQ) TABLET -NF PO SCH (14:54)
[2022-03-16] MEDS: THIAMINE HCL 100 MG TABLET (FP) PO SCH (21:14)
[2022-03-16] MEDS: ATORVASTATIN CA 40 MG TABLET (FP) PO SCH (21:14)
[2022-03-16] MEDS: QUEtiapine FUMARATE 50 MG TABLET PO SCH (21:14)
[2022-03-16] MEDS: MELATONIN 5 MG TABLETS PO SCH (21:14)
[2022-03-17] MEDS: hydrOXYzine PAMOATE 25 MG CAPSULE (FP) PO SCH ×2 (07:04→11:11)
[2022-03-17] MEDS: PRENATAL VITAMINS W/ FOLIC ACID TABLET (FP) PO SCH (11:10)
[2022-03-17] MEDS: LISINOPRIL 10 MG TABLET PO SCH (11:10)
[2022-03-17] MEDS: HYDROCHLOROTHIAZIDE 12.5 MG CAPSULE (FP) PO SCH (11:10)
[2022-03-17] MEDS: NICOTINE 7 MG/24 HOURS TOPICAL PATCH TD SCH (11:10)
[2022-03-17] MEDS: ABACAVIR/DOLUTEGRAVIR/LAMIVUDI (TRIUMEQ) TABLET -NF PO SCH (11:11)
[2022-03-17] MEDS ORDERED: hydrOXYzine PAMOATE 25 MG CAPSULE (FP) PO PRN (13:49)
[2022-03-18] MEDS: THIAMINE HCL 100 MG TABLET (FP) PO SCH ×2 (00:01→22:29)
[2022-03-18] MEDS: PRENATAL VITAMINS W/ FOLIC ACID TABLET (FP) PO SCH (10:52)
[2022-03-18] MEDS: ABACAVIR/DOLUTEGRAVIR/LAMIVUDI (TRIUMEQ) TABLET -NF PO SCH (10:53)
[2022-03-18] MEDS: HYDROCHLOROTHIAZIDE 12.5 MG CAPSULE (FP) PO SCH (10:53)
[2022-03-18] MEDS: LISINOPRIL 10 MG TABLET PO SCH (10:53)
[2022-03-18] MEDS: NICOTINE 7 MG/24 HOURS TOPICAL PATCH TD SCH (10:54)
[2022-03-18] MEDS: ATORVASTATIN CA 40 MG TABLET (FP) PO SCH ×2 (22:29)
[2022-03-18] MEDS: MELATONIN 5 MG TABLETS PO SCH ×2 (22:29)
[2022-03-18] MEDS: QUEtiapine FUMARATE 50 MG TABLET PO SCH ×2 (22:29)
[2022-03-19 07:39] VITALS: BP 122/77; PULSE 95; TEMP 98.4
[2022-03-19] MEDS: HYDROCHLOROTHIAZIDE 12.5 MG CAPSULE (FP) PO SCH ×2 (11:22→12:16)
[2022-03-19] MEDS: LISINOPRIL 10 MG TABLET PO SCH ×2 (11:23→12:16)
[2022-03-19] MEDS: PRENATAL VITAMINS W/ FOLIC ACID TABLET (FP) PO SCH (11:23)
[2022-03-19] MEDS: NICOTINE 7 MG/24 HOURS TOPICAL PATCH TD SCH (11:23)
[2022-03-19] MEDS: ABACAVIR/DOLUTEGRAVIR/LAMIVUDI (TRIUMEQ) TABLET -NF PO SCH (11:24)
== END 2022-03-19 14:40 | disposition left against medical advice (07) | DRG 770 ==
LOC: YASAS 13:07 → Y5N 17:20
PROVIDERS: ADMIT Allergy & Immunology; ATTEND Allergy & Immunology
PROC: HZ42ZZZ Group Counseling for Substance Abuse Treatment, Cognitive-Behavioral (ICD-10-PCS; principal; 2022-03-14)
DX: F14.20 Cocaine dependence, uncomplicated (principal); F10.20 Alcohol dependence, uncomplicated; F17.210 Nicotine dependence, cigarettes, uncomplicated; F19.24 Other psychoactive substance dependence with psychoactive substance-induced mood disorder; F19.282 Other psychoactive substance dependence with psychoactive substance-induced sleep disorder; F39 Unspecified mood [affective] disorder; F32.A Depression, unspecified; Z21 Asymptomatic human immunodeficiency virus [HIV] infection status; I10 Essential (primary) hypertension; J44.9 Chronic obstructive pulmonary disease, unspecified; E11.9 Type 2 diabetes mellitus without complications; Z79.84 Long term (current) use of oral hypoglycemic drugs; Z62.810 Personal history of physical and sexual abuse in childhood; Z94.1 Heart transplant status; Z91.410 Personal history of adult physical and sexual abuse; Z86.19 Personal history of other infectious and parasitic diseases; Z86.73 Personal history of transient ischemic attack (TIA), and cerebral infarction without residual deficits; Z91.19 Patient's noncompliance with other medical treatment and regimen
CPT/HCPCS: 36415; 80053; 85027; 86593; 86780; 86803; C9803-CS; U0003; U0005

== ENCOUNTER 2023-02-19 12:36 | Inpatient (IN) | payer OTHER ==
[2023-02-19 13:05] VITALS: BMI 23.0
[2023-02-19] MEDS ORDERED: MAGNESIUM HYDROX 2400MG/30ML ORAL SUSPENSION 30 ML CUP PO PRN (13:56)
[2023-02-19] MEDS ORDERED: hydrOXYzine PAMOATE 25 MG CAPSULE (FP) PO PRN (13:56)
[2023-02-19] MEDS ORDERED: ONDANSETRON *ODT* 4 MG TABLET SL PRN (13:56)
[2023-02-19] MEDS ORDERED: IBUPROFEN 400 MG TABLET (FP) PO PRN (13:56)
[2023-02-19] MEDS ORDERED: POLYETHYLENE GLYCOL (HEALTHYLAX) 3350 17 GM PACKET PO PRN (13:56)
[2023-02-19] MEDS ORDERED: MAG HYDROX/AL HYDROX/SIMETH 30 ML UNIT-DOSE CUP PO PRN (13:56)
[2023-02-19] MEDS ORDERED: METHOCARBAMOL 500 MG TABLET PO PRN (13:56)
[2023-02-19] MEDS ORDERED: DICYCLOMINE HCL 10 MG CAPSULE PO PRN (13:56)
[2023-02-19] MEDS ORDERED: NALOXONE HCL 0.4 MG/ML VIAL IM PRN (13:56)
[2023-02-19] MEDS ORDERED: NALOXONE HCL (KLOXXADO) 8 MG SPRAY NS PRN (13:56)
[2023-02-19] MEDS ORDERED: LORazepam 1 MG TABLET PO PRN (13:56)
[2023-02-19] MEDS ORDERED: ACETAMINOPHEN 325 MG TABLET (FP) PO PRN (13:56)
[2023-02-19] MEDS ORDERED: IBUPROFEN 600 MG TABLET (FP) PO PRN (13:56)
[2023-02-19] MEDS ORDERED: guaiFENesin 600 MG TABLET.ER (FP) PO PRN (13:56)
[2023-02-19] MEDS ORDERED: LOPERAMIDE HCL 2 MG CAPSULE PO PRN (13:56)
[2023-02-19] MEDS ORDERED: BENZOCAINE/MENTHOL (CHLORASEPTIC ) LOZENGE MM PRN (13:56)
[2023-02-19] MEDS ORDERED: BISMUTH SUBSALICYLATE 262 MG/15 ML BTL PO PRN (13:56)
[2023-02-19] MEDS ORDERED: BENZONATATE 200 MG CAPSULE PO PRN (13:56)
[2023-02-19] MEDS: PRENATAL VITAMINS W/ FOLIC ACID TABLET (FP) PO SCH (15:10)
[2023-02-19] MEDS: LORazepam 2 MG TABLET PO SCH ×2 (17:23→22:16)
[2023-02-19] MEDS: MELATONIN 5 MG TABLETS PO SCH (22:16)
[2023-02-19] MEDS: THIAMINE HCL 100 MG TABLET (FP) PO SCH (22:16)
[2023-02-19] MEDS ORDERED: cloNIDine HCL 0.1 MG TABLET PO ONE (22:50)
[2023-02-20] MEDS: LORazepam 2 MG TABLET PO SCH ×4 (05:55→22:32)
[2023-02-20] MEDS ORDERED: ALBUTEROL SO4 HFA INHALER IH PRN (09:37)
[2023-02-20] MEDS ORDERED: CARVEDILOL 12.5 MG TABLET (FP) PO SCH (10:00)
[2023-02-20] MEDS ORDERED: LISINOPRIL 10 MG TABLET PO SCH (10:00)
[2023-02-20] MEDS ORDERED: METOPROLOL TARTRATE 25 MG TABLET (FP) PO SCH (10:00)
[2023-02-20] MEDS ORDERED: HYDROCHLOROTHIAZIDE 12.5 MG CAPSULE (FP) PO SCH (10:00)
[2023-02-20] MEDS ORDERED: PATIENT'S OWN MEDICATION (NON-FORMULARY) (Lisinopril/Hydrochlorothiazide [Lisinopril-Hctz PO SCH (10:00)
[2023-02-20] MEDS: PRENATAL VITAMINS W/ FOLIC ACID TABLET (FP) PO SCH (10:49)
[2023-02-20] MEDS: ASPIRIN 81 MG CHEWABLE TABLETS PO SCH (10:52)
[2023-02-20] MEDS: LISINOPRIL 20 MG TABLET PO SCH (10:52)
[2023-02-20] MEDS: APIXABAN 5 MG TABLET PO SCH ×2 (11:43→21:54)
[2023-02-20] MEDS: ATORVASTATIN CA 80 MG TABLET (FP) PO SCH (21:53)
[2023-02-20] MEDS: THIAMINE HCL 100 MG TABLET (FP) PO SCH (21:54)
[2023-02-20] MEDS: MELATONIN 5 MG TABLETS PO SCH (21:54)
[2023-02-20] MEDS: METOPROLOL TARTRATE 25 MG TABLET (FP) PO SCH (21:54)
[2023-02-20] MEDS ORDERED: ATORVASTATIN CA 40 MG TABLET (FP) PO SCH (22:00)
[2023-02-21] MEDS: LORazepam 1 MG TABLET PO SCH ×5 (05:42→22:17)
[2023-02-21] MEDS: METOPROLOL TARTRATE 25 MG TABLET (FP) PO SCH ×2 (10:55→22:17)
[2023-02-21] MEDS: APIXABAN 5 MG TABLET PO SCH ×2 (10:55→22:17)
[2023-02-21] MEDS: LISINOPRIL 20 MG TABLET PO SCH (10:55)
[2023-02-21] MEDS: ASPIRIN 81 MG CHEWABLE TABLETS PO SCH (10:55)
[2023-02-21] MEDS: PRENATAL VITAMINS W/ FOLIC ACID TABLET (FP) PO SCH (10:55)
[2023-02-21] MEDS: THIAMINE HCL 100 MG TABLET (FP) PO SCH (22:17)
[2023-02-21] MEDS: MELATONIN 5 MG TABLETS PO SCH (22:17)
[2023-02-21] MEDS: ATORVASTATIN CA 80 MG TABLET (FP) PO SCH (22:17)
[2023-02-22] MEDS ORDERED: LORazepam 0.5 MG TABLET PO PRN
[2023-02-22] MEDS: LORazepam 0.5 MG TABLET PO SCH ×5 (06:16→23:02)
[2023-02-22] MEDS: METOPROLOL TARTRATE 25 MG TABLET (FP) PO SCH ×2 (10:40→22:55)
[2023-02-22] MEDS: PRENATAL VITAMINS W/ FOLIC ACID TABLET (FP) PO SCH (10:40)
[2023-02-22] MEDS: LISINOPRIL 20 MG TABLET PO SCH (10:41)
[2023-02-22] MEDS: ASPIRIN 81 MG CHEWABLE TABLETS PO SCH (10:41)
[2023-02-22] MEDS: APIXABAN 5 MG TABLET PO SCH ×2 (10:41→22:54)
[2023-02-22] MEDS: ATORVASTATIN CA 80 MG TABLET (FP) PO SCH (22:54)
[2023-02-22] MEDS: THIAMINE HCL 100 MG TABLET (FP) PO SCH (22:55)
[2023-02-22] MEDS: MELATONIN 5 MG TABLETS PO SCH (22:55)
[2023-02-23] MEDS ORDERED: LORazepam 0.5 MG TABLET PO ONE (05:00)
[2023-02-23] MEDS: APIXABAN 5 MG TABLET PO SCH ×2 (10:36→22:34)
[2023-02-23] MEDS: PRENATAL VITAMINS W/ FOLIC ACID TABLET (FP) PO SCH (10:36)
[2023-02-23] MEDS: ASPIRIN 81 MG CHEWABLE TABLETS PO SCH (10:36)
[2023-02-23] MEDS: LISINOPRIL 20 MG TABLET PO SCH (10:37)
[2023-02-23] MEDS: METOPROLOL TARTRATE 25 MG TABLET (FP) PO SCH ×2 (10:37→22:35)
[2023-02-23 11:51] LABS: BASO % 0.7 % (0-2.0); HEMATOCRIT 38.8 % (32.4-45.2); HEMOGLOBIN 12.7 GM/dL (10.7-15.3); LYMPH % 41.4 % (8-40); MCH 25.8 pg (25.7-33.7); MCHC 32.7 g/dl (32.0-36.0); MEAN CELL VOLUME 79.1 fl (80-96); MEAN PLT VOLUME 8.8 fl (7.5-11.1); MONO % 11.8 % (3.8-10.2); NEUT % 41.1 % (42.8-82.8); PLATELET COUNT 284 10^3/uL (134-434); RBC 4.91 M/mm3 (3.60-5.2); RDW 15.8 % (11.6-15.6); WHITE BLOOD COUNT 4.2 K/mm3 (4.0-10.0)
[2023-02-23 12:02] LABS: CALCIUM 9.3 mg/dL (8.5-10.1)
[2023-02-23 12:03] LABS: ALBUMIN 2.9 g/dl (3.4-5.0); BLOOD UREA NITROGEN 13.1 mg/dL (7-18)
[2023-02-23 12:06] LABS: CREATININE 1.1 mg/dL (0.55-1.3)
[2023-02-23 12:07] LABS: TOT PROT 7.4 g/dl (6.4-8.2)
[2023-02-23 12:08] LABS: BILIRUBIN,TOTAL 0.5 mg/dL (0.2-1)
[2023-02-23] MEDS ORDERED: MELATONIN 5 MG TABLETS PO SCH (22:00)
[2023-02-23] MEDS ORDERED: QUEtiapine FUMARATE 50 MG TABLET PO SCH (22:00)
[2023-02-23] MEDS: THIAMINE HCL 100 MG TABLET (FP) PO SCH (22:34)
[2023-02-23] MEDS: ATORVASTATIN CA 80 MG TABLET (FP) PO SCH (22:35)
[2023-02-24] MEDS: LISINOPRIL 20 MG TABLET PO SCH (10:41)
[2023-02-24] MEDS: METOPROLOL TARTRATE 25 MG TABLET (FP) PO SCH (10:41)
[2023-02-24] MEDS: ASPIRIN 81 MG CHEWABLE TABLETS PO SCH (10:41)
[2023-02-24] MEDS: PRENATAL VITAMINS W/ FOLIC ACID TABLET (FP) PO SCH (10:41)
[2023-02-24] MEDS: APIXABAN 5 MG TABLET PO SCH (10:42)
[2023-02-24 10:43] VITALS: BP 110/64; PULSE 65; RESP 18; TEMP 97.5
== END 2023-02-24 12:50 | disposition home or self-care (01) | DRG 774 ==
LOC: YASAS 12:36 → Y6N 14:24
PROVIDERS: ADMIT Allergy & Immunology; ATTEND Surgery
PROC: HZ2ZZZZ Detoxification Services for Substance Abuse Treatment (ICD-10-PCS; principal; 2023-02-19)
DX: F10.230 Alcohol dependence with withdrawal, uncomplicated (principal); F14.20 Cocaine dependence, uncomplicated; F12.20 Cannabis dependence, uncomplicated; F17.210 Nicotine dependence, cigarettes, uncomplicated; F31.9 Bipolar disorder, unspecified; F19.282 Other psychoactive substance dependence with psychoactive substance-induced sleep disorder; F19.24 Other psychoactive substance dependence with psychoactive substance-induced mood disorder; F39 Unspecified mood [affective] disorder; I25.10 Atherosclerotic heart disease of native coronary artery without angina pectoris; I11.0 Hypertensive heart disease with heart failure; I50.9 Heart failure, unspecified; B20 Human immunodeficiency virus [HIV] disease; Z79.899 Other long term (current) drug therapy; J44.9 Chronic obstructive pulmonary disease, unspecified; E78.5 Hyperlipidemia, unspecified; E11.9 Type 2 diabetes mellitus without complications; Z79.84 Long term (current) use of oral hypoglycemic drugs; Z94.1 Heart transplant status; Z79.01 Long term (current) use of anticoagulants; Z86.73 Personal history of transient ischemic attack (TIA), and cerebral infarction without residual deficits
CPT/HCPCS: 36415; 80053; 83036; 85025; 93005; 93010; C9803-CS; U0003; U0005

== ENCOUNTER 2024-02-22 12:23 | Inpatient (IN) | payer OTHER ==
[2024-02-22 12:47] VITALS: BMI 23.7
[2024-02-22] MEDS: LISINOPRIL 10 MG TABLET PO ONE (13:21)
[2024-02-22] MEDS ORDERED: LISINOPRIL 10 MG TABLET ONE (13:28)
[2024-02-22] MEDS ORDERED: IBUPROFEN 400 MG TABLET (FP) PO PRN (13:30)
[2024-02-22] MEDS ORDERED: MAG HYDROX/AL HYDROX/SIMETH 30 ML UNIT-DOSE CUP PO PRN (13:30)
[2024-02-22] MEDS ORDERED: LOPERAMIDE HCL 2 MG CAPSULE PO PRN (13:30)
[2024-02-22] MEDS ORDERED: MAGNESIUM HYDROX 2400MG/30ML ORAL SUSPENSION 30 ML CUP PO PRN (13:30)
[2024-02-22] MEDS ORDERED: guaiFENesin 600 MG TABLET.ER (FP) PO PRN (13:30)
[2024-02-22] MEDS ORDERED: ACETAMINOPHEN 325 MG TABLET (FP) PO PRN (13:30)
[2024-02-22] MEDS ORDERED: POLYETHYLENE GLYCOL (HEALTHYLAX) 3350 17 GM PACKET PO PRN (13:30)
[2024-02-22] MEDS ORDERED: P-EPHED 60MG/TRIPROLIDI 2.5MG TABLET PO PRN (13:30)
[2024-02-22] MEDS ORDERED: BENZONATATE 200 MG CAPSULE PO PRN (13:30)
[2024-02-22] MEDS ORDERED: BENZOCAINE/MENTHOL (CHLORASEPTIC ) LOZENGE MM PRN (13:30)
[2024-02-22] MEDS ORDERED: NICOTINE POLACRILEX 2 MG GUM BUC PRN (13:30)
[2024-02-22] MEDS ORDERED: IBUPROFEN 600 MG TABLET (FP) PO PRN (13:30)
[2024-02-22] MEDS ORDERED: NICOTINE POLACRILEX 2 MG LOZENGE BC PRN (13:30)
[2024-02-22] MEDS: MELATONIN 5 MG TABLETS PO SCH (22:27)
[2024-02-22] MEDS: THIAMINE HCL 100 MG TABLET (FP) PO SCH (22:27)
[2024-02-23] MEDS ORDERED: ALBUTEROL SO4 HFA INHALER IH PRN (09:02)
[2024-02-23] MEDS: PRENATAL VITAMINS W/ FOLIC ACID TABLET (FP) PO SCH (09:21)
[2024-02-23] MEDS: LISINOPRIL 10 MG TABLET PO SCH (09:21)
[2024-02-23] MEDS: HYDROCHLOROTHIAZIDE 12.5 MG CAPSULE (FP) PO SCH (09:21)
[2024-02-23] MEDS ORDERED: PRENATAL VITAMINS W/ FOLIC ACID TABLET (FP) PO SCH (10:00)
[2024-02-23 13:02] VITALS: RESP 17
[2024-02-23] MEDS: PATIENT'S OWN MEDICATION (NON-FORMULARY) (Bictegrav/Emtricit/Tenofov Ala [Biktarvy 30-120- PO SCH (13:28)
[2024-02-23] MEDS: APIXABAN 5 MG TABLET PO SCH ×2 (13:29→21:43)
[2024-02-23] MEDS: BICTEGRAV/EMTRICIT/TENOFOV (BIKTARVY) 50-200-25 MG TABLET PO SCH (13:34)
[2024-02-23 18:57] LABS: URINE APPEARANCE CLEAR; URINE BILIRUBIN NEGATIVE (NEGATIVE); URINE COLOR YELLOW; URINE GLUCOSE (UA) NEGATIVE (NEGATIVE); URINE KETONE NEGATIVE (NEGATIVE); URINE LEUK ESTERASE NEGATIVE (NEGATIVE); URINE NITRITE NEGATIVE (NEGATIVE); URINE PROTEIN NEGATIVE (NEGATIVE); URINE UROBILINOGEN 0.2 mg/dL (0.2-1.0)
[2024-02-23] MEDS: ATORVASTATIN CA 40 MG TABLET (FP) PO SCH (21:43)
[2024-02-24 07:02] VITALS: TEMP 97.6
[2024-02-24 09:32] VITALS: BP 122/94; PULSE 90
== END 2024-02-24 10:52 | disposition left against medical advice (07) | DRG 770 ==
LOC: YASAS 12:23 → Y3NR 13:45 → Y5N 02-23 11:13
PROVIDERS: ADMIT Allergy & Immunology; ATTEND Psychiatry & Neurology Pain Medicine
PROC: HZ42ZZZ Group Counseling for Substance Abuse Treatment, Cognitive-Behavioral (ICD-10-PCS; principal; 2024-02-22)
DX: F10.20 Alcohol dependence, uncomplicated (principal); F14.20 Cocaine dependence, uncomplicated; F17.210 Nicotine dependence, cigarettes, uncomplicated; F31.9 Bipolar disorder, unspecified; F19.24 Other psychoactive substance dependence with psychoactive substance-induced mood disorder; Z21 Asymptomatic human immunodeficiency virus [HIV] infection status; I25.10 Atherosclerotic heart disease of native coronary artery without angina pectoris; I11.0 Hypertensive heart disease with heart failure; I50.9 Heart failure, unspecified; Z94.1 Heart transplant status; Z79.01 Long term (current) use of anticoagulants; E11.9 Type 2 diabetes mellitus without complications; Z79.84 Long term (current) use of oral hypoglycemic drugs; Z86.73 Personal history of transient ischemic attack (TIA), and cerebral infarction without residual deficits
CPT/HCPCS: 0241U-QW; 80305; 81003; 93005; 93010

== ENCOUNTER 2024-03-26 13:25 | Inpatient (IN) | payer OTHER ==
[2024-03-26 15:21] VITALS: BMI 24.2
[2024-03-26] MEDS ORDERED: ALBUTEROL SO4 HFA INHALER IH PRN (15:40)
[2024-03-26] MEDS ORDERED: LOPERAMIDE HCL 2 MG CAPSULE PO PRN (16:02)
[2024-03-26] MEDS ORDERED: MAG HYDROX/AL HYDROX/SIMETH 30 ML UNIT-DOSE CUP PO PRN (16:02)
[2024-03-26] MEDS ORDERED: MAGNESIUM HYDROX 2400MG/30ML ORAL SUSPENSION 30 ML CUP PO PRN (16:02)
[2024-03-26] MEDS ORDERED: NICOTINE POLACRILEX 2 MG LOZENGE BC PRN (16:02)
[2024-03-26] MEDS ORDERED: BENZOCAINE/MENTHOL (CHLORASEPTIC ) LOZENGE MM PRN (16:02)
[2024-03-26] MEDS ORDERED: NICOTINE POLACRILEX 2 MG GUM BUC PRN (16:02)
[2024-03-26] MEDS ORDERED: ACETAMINOPHEN 325 MG TABLET (FP) PO PRN (16:02)
[2024-03-26] MEDS ORDERED: guaiFENesin 600 MG TABLET.ER (FP) PO PRN (16:02)
[2024-03-26] MEDS ORDERED: POLYETHYLENE GLYCOL (HEALTHYLAX) 3350 17 GM PACKET PO PRN (16:02)
[2024-03-26] MEDS ORDERED: METOPROLOL TARTRATE 25 MG TABLET (FP) ONE (17:34)
[2024-03-26] MEDS ORDERED: ASPIRIN 81 MG CHEWABLE TABLETS ONE (17:34)
[2024-03-26] MEDS: ASPIRIN 81 MG CHEWABLE TABLETS PO SCH (17:41)
[2024-03-26] MEDS: METOPROLOL TARTRATE 25 MG TABLET (FP) PO ONE (17:41)
[2024-03-26] MEDS: APIXABAN 5 MG TABLET PO SCH (22:41)
[2024-03-26] MEDS: THIAMINE 100 MG TABLET PO SCH (22:41)
[2024-03-26] MEDS: CARVEDILOL 6.25 MG TABLET (FP) PO SCH (22:41)
[2024-03-26] MEDS: ATORVASTATIN CA 40 MG TABLET (FP) PO SCH (22:41)
[2024-03-26] MEDS: MELATONIN 5 MG TABLETS PO SCH (22:42)
[2024-03-27] MEDS: BICTEGRAV/EMTRICIT/TENOFOV (BIKTARVY) 50-200-25 MG TABLET PO SCH (08:03)
[2024-03-27] MEDS: PRENATAL VITAMINS W/ FOLIC ACID TABLET (FP) PO SCH (10:25)
[2024-03-27 12:32] LABS: HEMATOCRIT 35.9 % (32.4-45.2); HEMOGLOBIN 11.7 GM/dL (10.7-15.3); MCH 26.3 pg (25.7-33.7); MCHC 32.4 g/dl (32.0-36.0); MEAN PLT VOLUME 8.9 fl (7.5-11.1); PLATELET COUNT 281 10^3/uL (134-434); RBC 4.43 M/mm3 (3.60-5.2); RDW 15.3 % (11.6-15.6); WHITE BLOOD COUNT 4.9 K/mm3 (4.0-10.0)
[2024-03-27 12:37] LABS: POTASSIUM 4.3 mmol/L (3.5-5.1)
[2024-03-27 12:45] LABS: CALCIUM 8.3 mg/dL (8.5-10.1)
[2024-03-27 12:46] LABS: ALBUMIN 2.5 g/dl (3.4-5.0); BLOOD UREA NITROGEN 18.4 mg/dL (7-18)
[2024-03-27 12:49] LABS: CREATININE 1.1 mg/dL (0.55-1.3)
[2024-03-27 12:50] LABS: BILIRUBIN,TOTAL 0.3 mg/dL (0.2-1)
[2024-03-27] MEDS: hydrOXYzine PAMOATE 25 MG CAPSULE (FP) PO PRN (18:49)
[2024-03-27] MEDS: LISINOPRIL 10 MG TABLET PO SCH (19:28)
[2024-03-27] MEDS: BENZONATATE 200 MG CAPSULE PO PRN (19:28)
[2024-03-27] MEDS: QUEtiapine FUMARATE 50 MG TABLET PO SCH (22:49)
[2024-03-28 10:34] VITALS: BP 117/80; PULSE 78; RESP 18; TEMP 97.6
== END 2024-03-28 12:24 | disposition home or self-care (01) | DRG 773 ==
LOC: YASAS 13:25 → Y6N 16:47
PROVIDERS: ADMIT Allergy & Immunology; ATTEND Surgery
PROC: HZ2ZZZZ Detoxification Services for Substance Abuse Treatment (ICD-10-PCS; principal; 2024-03-26)
DX: F11.23 Opioid dependence with withdrawal (principal); F10.230 Alcohol dependence with withdrawal, uncomplicated; F14.20 Cocaine dependence, uncomplicated; F12.20 Cannabis dependence, uncomplicated; F17.210 Nicotine dependence, cigarettes, uncomplicated; Z21 Asymptomatic human immunodeficiency virus [HIV] infection status; Z79.899 Other long term (current) drug therapy; E78.5 Hyperlipidemia, unspecified; J43.0 Unilateral pulmonary emphysema [MacLeod's syndrome]; I25.10 Atherosclerotic heart disease of native coronary artery without angina pectoris; I11.0 Hypertensive heart disease with heart failure; I50.9 Heart failure, unspecified; Z86.19 Personal history of other infectious and parasitic diseases
CPT/HCPCS: 36415; 80053; 80305; 85027; 86593; 86780; 93005; 93010

== ENCOUNTER 2024-04-20 13:01 | Inpatient (IN) | payer OTHER ==
[2024-04-20 13:38] VITALS: BMI 23.3
[2024-04-20] MEDS ORDERED: POLYETHYLENE GLYCOL (HEALTHYLAX) 3350 17 GM PACKET PO PRN (14:09)
[2024-04-20] MEDS ORDERED: NALOXONE HCL (KLOXXADO) 8 MG SPRAY NS PRN (14:09)
[2024-04-20] MEDS ORDERED: MAG HYDROX/AL HYDROX/SIMETH 30 ML UNIT-DOSE CUP PO PRN (14:09)
[2024-04-20] MEDS ORDERED: ONDANSETRON *ODT* 4 MG TABLET SL PRN (14:09)
[2024-04-20] MEDS ORDERED: DICYCLOMINE HCL 10 MG CAPSULE PO PRN (14:09)
[2024-04-20] MEDS ORDERED: BENZOCAINE/MENTHOL (CHLORASEPTIC ) LOZENGE MM PRN (14:09)
[2024-04-20] MEDS ORDERED: IBUPROFEN 600 MG TABLET (FP) PO PRN (14:09)
[2024-04-20] MEDS ORDERED: NALOXONE HCL 0.4 MG/ML VIAL IM PRN (14:09)
[2024-04-20] MEDS ORDERED: guaiFENesin 600 MG TABLET.ER (FP) PO PRN (14:09)
[2024-04-20] MEDS ORDERED: ACETAMINOPHEN 325 MG TABLET (FP) PO PRN (14:09)
[2024-04-20] MEDS ORDERED: BENZONATATE 200 MG CAPSULE PO PRN (14:09)
[2024-04-20] MEDS ORDERED: BISMUTH SUBSALICYLATE 524 MG/30 ML PO PRN (14:09)
[2024-04-20] MEDS ORDERED: LOPERAMIDE HCL 2 MG CAPSULE PO PRN (14:09)
[2024-04-20] MEDS ORDERED: IBUPROFEN 400 MG TABLET (FP) PO PRN (14:09)
[2024-04-20] MEDS ORDERED: ALBUTEROL SO4 HFA INHALER IH PRN (14:13)
[2024-04-20] MEDS ORDERED: LISINOPRIL 10 MG TABLET ONE (15:10)
[2024-04-20] MEDS: LISINOPRIL 10 MG TABLET PO SCH (15:14)
[2024-04-20] MEDS: hydrOXYzine PAMOATE 25 MG CAPSULE (FP) PO PRN (17:54)
[2024-04-20] MEDS: MAGNESIUM HYDROX 2400MG/30ML ORAL SUSPENSION 30 ML CUP PO PRN (17:54)
[2024-04-20] MEDS: METHOCARBAMOL 500 MG TABLET PO PRN (17:54)
[2024-04-20] MEDS: amLODIPine BESYLATE 10 MG TABLET (FP) PO ONE (18:45)
[2024-04-20] MEDS: MELATONIN 5 MG TABLETS PO SCH (22:39)
[2024-04-20] MEDS: APIXABAN 5 MG TABLET PO SCH (22:39)
[2024-04-20] MEDS: ATORVASTATIN CA 40 MG TABLET (FP) PO SCH (22:39)
[2024-04-20] MEDS: CARVEDILOL 12.5 MG TABLET (FP) PO SCH (22:40)
[2024-04-20] MEDS: THIAMINE 100 MG TABLET PO SCH (22:40)
[2024-04-21] MEDS: BICTEGRAV/EMTRICIT/TENOFOV (BIKTARVY) 50-200-25 MG TABLET PO SCH (07:41)
[2024-04-21] MEDS: ASPIRIN 81 MG CHEWABLE TABLETS PO SCH (09:24)
[2024-04-21] MEDS: PRENATAL VITAMINS W/ FOLIC ACID TABLET (FP) PO SCH (09:25)
[2024-04-21 10:28] LABS: POTASSIUM 3.7 mmol/L (3.5-5.1)
[2024-04-21] MEDS ORDERED: LORazepam 1 MG TABLET PO PRN (10:34)
[2024-04-21 10:36] LABS: CALCIUM 9.1 mg/dL (8.5-10.1)
[2024-04-21 10:37] LABS: ALBUMIN 3.3 g/dl (3.4-5.0); BLOOD UREA NITROGEN 17.7 mg/dL (7-18)
[2024-04-21 10:39] LABS: CREATININE 1.1 mg/dL (0.55-1.3)
[2024-04-21 10:41] LABS: BILIRUBIN,TOTAL 0.7 mg/dL (0.2-1); TOT PROT 7.4 g/dl (6.4-8.2)
[2024-04-21] MEDS: LORazepam 1 MG TABLET PO SCH (11:22)
[2024-04-22] MEDS: LORazepam 0.5 MG TABLET PO SCH (05:46)
[2024-04-22] MEDS: LISINOPRIL 20 MG TABLET PO SCH (10:22)
[2024-04-22 13:24] VITALS: BP 157/104; PULSE 78; RESP 18; TEMP 97.7
[2024-04-23] MEDS ORDERED: LORazepam 0.5 MG TABLET PO ONE (05:00)
== END 2024-04-22 15:40 | disposition home or self-care (01) | DRG 774 ==
LOC: YASAS 13:01 → Y6N 14:32
PROVIDERS: ADMIT Allergy & Immunology; ATTEND Surgery
PROC: HZ2ZZZZ Detoxification Services for Substance Abuse Treatment (ICD-10-PCS; principal; 2024-04-20)
DX: F10.230 Alcohol dependence with withdrawal, uncomplicated (principal); F14.20 Cocaine dependence, uncomplicated; F12.10 Cannabis abuse, uncomplicated; F17.210 Nicotine dependence, cigarettes, uncomplicated; Z21 Asymptomatic human immunodeficiency virus [HIV] infection status; I25.10 Atherosclerotic heart disease of native coronary artery without angina pectoris; I11.0 Hypertensive heart disease with heart failure; I50.9 Heart failure, unspecified; Z94.1 Heart transplant status; J45.20 Mild intermittent asthma, uncomplicated; I82.409 Acute embolism and thrombosis of unspecified deep veins of unspecified lower extremity; Z79.01 Long term (current) use of anticoagulants; E78.5 Hyperlipidemia, unspecified; Z79.899 Other long term (current) drug therapy; Z86.19 Personal history of other infectious and parasitic diseases; Z56.0 Unemployment, unspecified; Z59.02 Unsheltered homelessness
CPT/HCPCS: 36415; 80053; 80305; 80307; 83036; 86593; 86780; 93005; 93010

== ENCOUNTER 2024-05-13 12:21 | Inpatient (IN) | payer OTHER ==
[2024-05-13 13:35] VITALS: BMI 24.0
[2024-05-13] MEDS ORDERED: BISMUTH SUBSALICYLATE 524 MG/30 ML PO PRN (15:07)
[2024-05-13] MEDS ORDERED: LOPERAMIDE HCL 2 MG CAPSULE PO PRN (15:07)
[2024-05-13] MEDS ORDERED: IBUPROFEN 600 MG TABLET (FP) PO PRN (15:07)
[2024-05-13] MEDS ORDERED: MAG HYDROX/AL HYDROX/SIMETH 30 ML UNIT-DOSE CUP PO PRN (15:07)
[2024-05-13] MEDS ORDERED: guaiFENesin 600 MG TABLET.ER (FP) PO PRN (15:07)
[2024-05-13] MEDS ORDERED: MAGNESIUM HYDROX 2400MG/30ML ORAL SUSPENSION 30 ML CUP PO PRN (15:07)
[2024-05-13] MEDS ORDERED: POLYETHYLENE GLYCOL (HEALTHYLAX) 3350 17 GM PACKET PO PRN (15:07)
[2024-05-13] MEDS ORDERED: DICYCLOMINE HCL 10 MG CAPSULE PO PRN (15:07)
[2024-05-13] MEDS ORDERED: NALOXONE HCL 0.4 MG/ML VIAL IM PRN (15:07)
[2024-05-13] MEDS ORDERED: BENZOCAINE/MENTHOL (CHLORASEPTIC ) LOZENGE MM PRN (15:07)
[2024-05-13] MEDS ORDERED: NALOXONE (NARCAN) HCL 4 MG/0.1 ML SPRAY NS PRN (15:07)
[2024-05-13] MEDS ORDERED: ACETAMINOPHEN 325 MG TABLET (FP) PO PRN (15:07)
[2024-05-13] MEDS ORDERED: LORazepam 1 MG TABLET PO PRN (15:07)
[2024-05-13] MEDS ORDERED: ONDANSETRON *ODT* 4 MG TABLET SL PRN (15:07)
[2024-05-13] MEDS ORDERED: IBUPROFEN 400 MG TABLET (FP) PO PRN (15:07)
[2024-05-13] MEDS ORDERED: BENZONATATE 200 MG CAPSULE PO PRN (15:07)
[2024-05-13] MEDS ORDERED: ALBUTEROL SO4 HFA INHALER IH PRN (15:10)
[2024-05-13] MEDS: hydrOXYzine PAMOATE 25 MG CAPSULE (FP) PO SCH (16:00)
[2024-05-13] MEDS: PRENATAL VITAMINS W/ FOLIC ACID TABLET (FP) PO SCH (16:00)
[2024-05-13] MEDS: LORazepam 2 MG TABLET PO SCH (17:08)
[2024-05-13] MEDS: LISINOPRIL 5 MG TABLET PO ONE (17:56)
[2024-05-13] MEDS: MELATONIN 5 MG TABLETS PO SCH (23:03)
[2024-05-13] MEDS: METHOCARBAMOL 500 MG TABLET PO PRN (23:03)
[2024-05-13] MEDS: THIAMINE 100 MG TABLET PO SCH (23:03)
[2024-05-13] MEDS: APIXABAN 5 MG TABLET PO SCH (23:05)
[2024-05-13] MEDS: ATORVASTATIN CA 40 MG TABLET (FP) PO SCH (23:05)
[2024-05-13] MEDS: CARVEDILOL 6.25 MG TABLET (FP) PO SCH (23:40)
[2024-05-13] MEDS: CARVEDILOL 12.5 MG TABLET (FP) PO SCH ×2 (23:45)
[2024-05-14] MEDS: BICTEGRAV/EMTRICIT/TENOFOV (BIKTARVY) 50-200-25 MG TABLET PO SCH (07:34)
[2024-05-14] MEDS: LISINOPRIL 20 MG TABLET PO SCH (10:55)
[2024-05-15] MEDS: LORazepam 1 MG TABLET PO SCH (05:58)
[2024-05-16] MEDS ORDERED: LORazepam 0.5 MG TABLET PO PRN
[2024-05-16] MEDS: LORazepam 0.5 MG TABLET PO SCH (06:07)
[2024-05-16] MEDS: amLODIPine BESYLATE 10 MG TABLET (FP) PO ONE (18:49)
[2024-05-16 21:39] VITALS: RESP 16; TEMP 97.6
[2024-05-17] MEDS: LORazepam 0.5 MG TABLET PO ONE (05:08)
[2024-05-17 09:29] VITALS: BP 120/79; PULSE 64
== END 2024-05-17 09:17 | disposition home or self-care (01) | DRG 774 ==
LOC: YASAS 12:21 → Y6N 16:38
PROVIDERS: ADMIT Allergy & Immunology; ATTEND Surgery
PROC: HZ2ZZZZ Detoxification Services for Substance Abuse Treatment (ICD-10-PCS; principal; 2024-05-13)
DX: F10.230 Alcohol dependence with withdrawal, uncomplicated (principal); F14.20 Cocaine dependence, uncomplicated; F17.210 Nicotine dependence, cigarettes, uncomplicated; F41.9 Anxiety disorder, unspecified; Z21 Asymptomatic human immunodeficiency virus [HIV] infection status; I11.0 Hypertensive heart disease with heart failure; I50.9 Heart failure, unspecified; J45.20 Mild intermittent asthma, uncomplicated; E78.5 Hyperlipidemia, unspecified; R79.89 Other specified abnormal findings of blood chemistry; Z86.718 Personal history of other venous thrombosis and embolism; Z79.01 Long term (current) use of anticoagulants; Z86.19 Personal history of other infectious and parasitic diseases
CPT/HCPCS: 80305; 80307

== ENCOUNTER 2024-06-08 09:44 | Inpatient (IN) | payer OTHER ==
[2024-06-08 10:59] VITALS: BMI 23.7
[2024-06-08] MEDS ORDERED: hydrOXYzine PAMOATE 25 MG CAPSULE (FP) PO PRN (13:03)
[2024-06-08] MEDS ORDERED: MAG HYDROX/AL HYDROX/SIMETH 30 ML UNIT-DOSE CUP PO PRN (13:03)
[2024-06-08] MEDS ORDERED: LOPERAMIDE HCL 2 MG CAPSULE PO PRN (13:03)
[2024-06-08] MEDS ORDERED: guaiFENesin 600 MG TABLET.ER (FP) PO PRN (13:03)
[2024-06-08] MEDS ORDERED: IBUPROFEN 400 MG TABLET (FP) PO PRN (13:03)
[2024-06-08] MEDS ORDERED: MAGNESIUM HYDROX 2400MG/30ML ORAL SUSPENSION 30 ML CUP PO PRN (13:03)
[2024-06-08] MEDS ORDERED: IBUPROFEN 600 MG TABLET (FP) PO PRN (13:03)
[2024-06-08] MEDS ORDERED: NALOXONE (NARCAN) HCL 4 MG/0.1 ML SPRAY NS PRN (13:03)
[2024-06-08] MEDS ORDERED: POLYETHYLENE GLYCOL (HEALTHYLAX) 3350 17 GM PACKET PO PRN (13:03)
[2024-06-08] MEDS ORDERED: BENZONATATE 200 MG CAPSULE PO PRN (13:03)
[2024-06-08] MEDS ORDERED: ACETAMINOPHEN 325 MG TABLET (FP) PO PRN (13:03)
[2024-06-08] MEDS ORDERED: NALOXONE HCL 0.4 MG/ML VIAL IM PRN (13:03)
[2024-06-08] MEDS ORDERED: BENZOCAINE/MENTHOL (CHLORASEPTIC ) LOZENGE MM PRN (13:03)
[2024-06-08] MEDS ORDERED: ALBUTEROL SO4 HFA INHALER IH PRN (13:05)
[2024-06-08] MEDS ORDERED: PRENATAL VITAMINS W/ FOLIC ACID TABLET (FP) PO ONE (14:03)
[2024-06-08] MEDS ORDERED: cloNIDine HCL 0.1 MG TABLET ONE (14:03)
[2024-06-08] MEDS ORDERED: NICOTINE 7 MG/24 HOURS TOPICAL PATCH TD ONE (14:03)
[2024-06-08] MEDS: NICOTINE 7 MG/24 HOURS TOPICAL PATCH TD SCH (14:06)
[2024-06-08] MEDS: PRENATAL VITAMINS W/ FOLIC ACID TABLET (FP) PO SCH (14:06)
[2024-06-08] MEDS: cloNIDine HCL 0.1 MG TABLET PO ONE (14:06)
[2024-06-08] MEDS: amLODIPine BESYLATE 10 MG TABLET (FP) PO ONE (15:26)
[2024-06-08] MEDS: APIXABAN 5 MG TABLET PO SCH (21:46)
[2024-06-08] MEDS: MELATONIN 5 MG TABLETS PO SCH (21:46)
[2024-06-08] MEDS: THIAMINE 100 MG TABLET PO SCH (21:46)
[2024-06-08] MEDS: ATORVASTATIN CA 40 MG TABLET (FP) PO SCH (21:46)
[2024-06-08] MEDS: CARVEDILOL 12.5 MG TABLET (FP) PO SCH (22:36)
[2024-06-09] MEDS: BICTEGRAV/EMTRICIT/TENOFOV (BIKTARVY) 50-200-25 MG TABLET PO SCH (07:30)
[2024-06-09] MEDS: amLODIPine BESYLATE 10 MG TABLET (FP) PO SCH (10:24)
[2024-06-09] MEDS: LISINOPRIL 10 MG TABLET PO SCH (10:24)
[2024-06-10] MEDS: ASPIRIN 81 MG CHEWABLE TABLETS PO SCH (10:10)
[2024-06-11 01:48] LABS: PH,URINE 7.5 (5.0-8.0); URINE APPEARANCE CLEAR; URINE BILIRUBIN NEGATIVE (NEGATIVE); URINE COLOR YELLOW; URINE GLUCOSE (UA) NEGATIVE (NEGATIVE); URINE KETONE NEGATIVE (NEGATIVE); URINE LEUK ESTERASE NEGATIVE (NEGATIVE); URINE NITRITE NEGATIVE (NEGATIVE); URINE PROTEIN NEGATIVE (NEGATIVE); URINE UROBILINOGEN 0.2 mg/dL (0.2-1.0)
[2024-06-11] MEDS: BICTEGRAV/EMTRICIT/TENOFOV (BIKTARVY) 50-200-25 MG TABLET PO SCH (06:49)
[2024-06-11 07:29] VITALS: BP 154/95; PULSE 61; RESP 18; TEMP 97.2
== END 2024-06-11 13:25 | disposition left against medical advice (07) | DRG 770 ==
LOC: YASAS 09:44 → Y3NR 13:36 → Y5N 06-09 13:03
PROVIDERS: ADMIT Allergy & Immunology; ATTEND Psychiatry & Neurology Pain Medicine
PROC: HZ42ZZZ Group Counseling for Substance Abuse Treatment, Cognitive-Behavioral (ICD-10-PCS; principal; 2024-06-08)
DX: F10.20 Alcohol dependence, uncomplicated (principal); F14.20 Cocaine dependence, uncomplicated; Z21 Asymptomatic human immunodeficiency virus [HIV] infection status; I25.10 Atherosclerotic heart disease of native coronary artery without angina pectoris; I11.0 Hypertensive heart disease with heart failure; I50.9 Heart failure, unspecified; J45.20 Mild intermittent asthma, uncomplicated; E78.5 Hyperlipidemia, unspecified; Z86.718 Personal history of other venous thrombosis and embolism; Z79.01 Long term (current) use of anticoagulants; Z79.899 Other long term (current) drug therapy
CPT/HCPCS: 80305; 80307; 81003; 87811